=== PATIENT | female | born 1990 | race Hispanic/Latino ===

== ENCOUNTER → 2023-08-09 17:51 | Outpatient (REF) | payer OTHER, SELFPAY ==
[2023-08-18 04:08] LABS: HPV Genotype 16 Not Detected; HPV Genotype 18 Not Detected; HPV, High Risk Not Detected; HPV, High Risk Source Cervical
== END ==
LOC: CPAP 17:51
PROVIDERS: ATTENDING PHYSICIAN Nurse Practitioner Acute Care
DX: Z12.4 Encounter for screening for malignant neoplasm of cervix (principal)
CPT/HCPCS: 87624; G0123

== ENCOUNTER → 2023-09-18 08:12 | Outpatient (REF) | payer OTHER, SELFPAY ==
[2023-09-18 09:57] LABS: ALT (SGPT) 40 U/L (0-35); AST (SGOT) 30 U/L (14-36); Albumin 4.5 g/dl (3.5-5.0); Alkaline Phosphatase 99 U/L (38-126); Blood Urea Nitrogen 13 mg/dl (7-17); Calcium 8.8 mg/dl (8.4-10.2); Carbon Dioxide 21 mmol/L (22-30); Chloride 108 mmol/L (98-107); Glucose 98 mg/dl (70-99); HDL Cholesterol 28 mg/dl; LDL Cholesterol, Calculated 116 mg/dl; Potassium 4.5 mmol/L (3.5-5.1); Sodium 137 mmol/L (135-145); Total Cholesterol 170 mg/dl (50-199); Total Protein 7.4 g/dl (6.3-8.2); Triglyceride 131 mg/dl (10-149); Very Low Density Lipoprotein 26 mg/dl (0-30); eGFR > 60.00
[2023-09-18 10:05] LABS: Glycohemoglobin (HgbA1c) 5.7 % (4.0-5.6); Vitamin D, 25-OH*** 14.9 ng/mL (30-80)
[2023-09-18 10:18] LABS: TSH Reflex To Free T4 4.83 uIU/ml (0.47-4.68)
[2023-09-18 10:47] LABS: Free T4 0.87 ng/dl (0.78-2.19)
[2023-09-18 19:42] LABS: Hepatitis C Antibody Negative (Negative)
[2023-09-21 00:42] LABS: HBV Quant by NAAT IU/mL Not Detected; HBV Quant by NAAT Interp Not Detected (Not Detected); HBV Quant by NAAT Log IU/mL Not Detected log IU/mL
== END ==
LOC: CLINIC 08:12
PROVIDERS: ATTENDING PHYSICIAN Nurse Practitioner Acute Care
DX: E78.2 Mixed hyperlipidemia (principal); R73.03 Prediabetes; E55.9 Vitamin D deficiency, unspecified; R79.89 Other specified abnormal findings of blood chemistry
CPT/HCPCS: 80053; 80061; 82306; 83036; 84439; 84443; 86803; 87517

== ENCOUNTER → 2023-12-13 07:11 | Outpatient (REF) | payer OTHER, SELFPAY ==
[2023-12-13 08:53] LABS: Glycohemoglobin (HgbA1c) 5.6 % (4.0-5.6)
[2023-12-13 10:26] LABS: ALT (SGPT) 26 U/L (0-35); AST (SGOT) 24 U/L (14-36); Albumin 4.5 g/dl (3.5-5.0); Alkaline Phosphatase 99 U/L (38-126); Blood Urea Nitrogen 14 mg/dl (7-17); Calcium 9.5 mg/dl (8.4-10.2); Carbon Dioxide 23 mmol/L (22-30); Chloride 105 mmol/L (98-107); Glucose 91 mg/dl (70-99); Potassium 4.4 mmol/L (3.5-5.1); Sodium 139 mmol/L (135-145); Total Bilirubin 1.5 mg/dl (0.2-1.3); Total Protein 7.2 g/dl (6.3-8.2); eGFR > 60.00
[2023-12-13 10:29] LABS: Free T4 0.87 ng/dl (0.78-2.19); Vitamin D, 25-OH*** 22.4 ng/mL (30-80)
[2023-12-13 10:42] LABS: TSH 6.52 uIU/ml (0.47-4.68)
== END ==
LOC: REG 07:11
PROVIDERS: ATTENDING PHYSICIAN Nurse Practitioner Adult Health
DX: R73.03 Prediabetes (principal); R79.89 Other specified abnormal findings of blood chemistry; E55.9 Vitamin D deficiency, unspecified
CPT/HCPCS: 80053; 82306; 83036; 84439; 84443

== ENCOUNTER 2024-01-08 14:20 | Emergency (ER) | payer SELFPAY ==
[2024-01-08] VITALS (9 sets, daily range): BP systolic 97–122; BP diastolic 64–94; PULSE 76–78; BMI 32.3
[2024-01-08 14:52] LABS: % Basophils 0.2 % (0-2); % Immature Granulocytes 0.4 % (0-0.5); % Lymphocytes 14.5 % (20.5-51.1); % Monocytes 6.1 % (1.7-9.3); % Neutrophils 78.8 % (42.2-75.2); Absolute Lymphocytes 1.6 10^3/uL (1.2-3.4); Absolute Monocytes 0.7 10^3/uL (0.1-0.6); Absolute Neutrophils 8.5 10^3/uL (1.4-6.5); Hematocrit 39.7 % (37.0-47.0); Hemoglobin 13.7 g/dL (12.0-16.0); Mean Corp Hgb Conc. 34.5 g/dL (33.0-37.0); Mean Corpuscular Hgb 30.3 pg (27.0-31.0); Mean Corpuscular Volume 87.8 fL (81.0-99.0); Mean Platelet Volume 10.6 fL (7.4-10.4); Nucleated Red Blood Cells % 0 %; Platelet Count 250 10^3/uL (130-400); Red Blood Cell Count 4.52 10^6/uL (4.20-5.40); Red Cell Dist. Width 13.1 % (11.5-14.5); White Blood Cell Count 10.8 10^3/uL (4.8-10.8)
[2024-01-08 15:07] LABS: COVID-19 Antigen Negative (Negative)
[2024-01-08 15:10] LABS: ALT (SGPT) 44 U/L (0-35); AST (SGOT) 29 U/L (14-36); Albumin 4.6 g/dl (3.5-5.0); Alkaline Phosphatase 92 U/L (38-126); Blood Urea Nitrogen 8 mg/dl (7-17); Calcium 9.3 mg/dl (8.4-10.2); Carbon Dioxide 22 mmol/L (22-30); Chloride 101 mmol/L (98-107); Glucose 98 mg/dl (70-99); Potassium 3.6 mmol/L (3.5-5.1); Sodium 135 mmol/L (135-145); Total Bilirubin 2.4 mg/dl (0.2-1.3); Total Protein 7.5 g/dl (6.3-8.2); eGFR > 60.00
[2024-01-08] MEDS: NSS 1000 IV ×2 (19:14→22:04)
[2024-01-08] MEDS: DILAUDID 0.5 MG IV (19:14)
[2024-01-08] MEDS: PROTONIX IV 40 MG IV (19:16)
[2024-01-08] MEDS: TORADOL 15 MG IV (19:19)
[2024-01-08 19:25] LABS: HCG, Serum Qualitative Screen Negative
[2024-01-08 19:29] LABS: Lipase 46 U/L (23-300)
--- NOTE | 2024-01-08 20:29 | ED.GENMED ---
History of Present Illness
General
Chief Complaint: Fever
Source: patient
Exam Limitations: none
Time Seen by Provider: 01/08/24 17:39
Nursing documentation reviewed up to this point in time: agreed with
History of Present Illness
History of Present Illness:
Patient presents to ED secondary to 3-day history of upper abdominal pain associated with nausea, vomiting, and diarrhea. In addition, patient report diffuse headache along with neck pain over the past 2 days. Abdominal pain described as sharp,
nonradiating, worse with meals, without any alleviating factors. Denies trauma. Denies recent travel or surgery. Denies back pain. Denies difficulty with urination. Denies sick contact. Patient otherwise is healthy, and does not take any
medications. Denies any abdominal surgery.
Review of Systems
Review of Systems
Allergies reviewed?: Yes
All Other Systems: ROS reviewed and negative except as documented in HPI and ROS
Constitutional: Reports no symptoms; Denies fever or chills
EENT: Reports no symptoms
Respiratory: Reports no symptoms; Denies cough
Cardiac: Reports no symptoms
ABD/GI: Reports abdominal pain, nausea, vomiting and diarrhea
: Reports no symptoms
Musculoskeletal: Reports neck pain
Skin: Reports no symptoms
Neurological: Reports headache
Phy Exam
Physical Exam
Physical Exam:
Physical Exam
General: mild distress, not acutely ill. afebrile
Head: nc/at. eomi
Neck: supple. no meningeal signs. normal posterior pharynx
Heart: s1/s2 regular rate and rhythm, no murmur. equal radial pulses.
Lungs: no acute respiratory distress. clear bilaterally
Abdomen: normal bowel sounds. mild epigastric/RUQ tenderness to palpation, without distention
Neuro: alert and oriented. no focal neurological deficits
Skin: no rash
Psychiatric: well kept. interactive and cooperative
Extremities: no edema. no calf tenderness
Course
Orders/Labs/Results
Orders:
Orders
01/08/24 14:36
COVID-19 Antigen Urgent
Source: Nasal Swab
Complete Blood Count/With Diff Urgent
Comprehensive Metabolic Panel Urgent
HCG, Serum Qualitative Screen Urgent
Comment: ADD ON
Lipase Urgent
Comment: ADD ON
Monotest Urgent
Comment: ADD ON
Influenza A+B Rapid Molecular Urgent
POLO Source: Nasal Swab
Specimen Description:
01/08/24 18:51
0.9% Sodium Chloride 1000 ml [Nss] 1,000 ml IV BOLUS
HYDROmorphone [Dilaudid] 0.5 mg IV NOW STA
Ketorolac [Toradol] 15 mg IV NOW STA
Pantoprazole [Protonix IV] 40 mg IV NOW STA
US Abdomen Complete/Upper Urgent
Comment:
Reason For Exam: RUQ pain
01/08/24 18:52
Add On- LAB Urgent
Tests Added?: lipase, seum b-hcg, qualitative
01/08/24 21:51
Add On- LAB Urgent
Tests Added?: monotest
01/08/24 21:59
0.9% Sodium Chloride 1000 ml [Nss] 1,000 ml IV BOLUS
Abnormal Lab Results
01/08/24
14:36
MPV 10.6 H fL
(7.4-10.4)
Absolute Neuts (auto) 8.5 H 10^3/uL
(1.4-6.5)
Absolute Monos (auto) 0.7 H 10^3/uL
(0.1-0.6)
Neutrophils % 78.8 H %
(42.2-75.2)
Lymphocytes % 14.5 L %
(20.5-51.1)
Total Bilirubin 2.4 H mg/dl
(0.2-1.3)
ALT 44 H U/L
(0-35)
07/08/24 14:36
01/08/24 14:36
Vital Signs
Initial and Last Documented VS:
Initial Vital Signs
Temp Pulse Resp BP Pulse Ox
99.3 F 96 18 117/89 97
01/08/24 14:23 01/08/24 14:23 01/08/24 14:23 01/08/24 14:23 01/08/24 14:23
Last Documented Vital Signs
Temp Pulse Resp BP Pulse Ox
99.3 F 96 18 114/79 98
01/08/24 14:23 01/08/24 14:23 01/08/24 14:23 01/08/24 22:38 01/08/24 22:38
MDM/Problems Addressed
MDM/Problems Addressed:
Patient with an unremarkable workup in ED, including blood work and abdominal US. In addition, patient reports complete resolution of symptoms after treatment. Patient no longer has headache and abdominal pain. Patient is able to range her neck
without any discomfort. Repeat abdominal exam: Soft and nontender. History and exam consistent with likely viral illness. Otherwise, patient is afebrile, hemodynamic stable, and nontoxic-appearing, at time of discharge. Advised Tylenol/Motrin
along with hydration at home advised to return to ED with worsening symptoms, i.e. fever/worsening pain/vomiting. Everything explained to the patient via container finisher.
*Critical Care Note
Total Time (30-74mins, 75-104mins- exclusive of procedures): Not Applicable
ED Attending Note
-
Portions of this chart may have been created with voice recognition software.� Occasional wrong word or��sound alike� substitutions may have occurred due to the inherent limitations of voice recognition software.
Discharge Plan
Departure
Patient Disposition: Home (Routine Discharge)
Date of Disposition: 01/08/24
Time of Disposition: 22:49
Patient with high blood pressure during this ER visit?: Yes
Discharge Problem:
Viral illness
Instructions: Viral Syndrome (DC)
Referrals:
[facility], PA-C [Family Provider] -
Activity Restrictions/Additional Instructions:
As discussed, please follow-up with your primary care physician for reevaluation. Please return to ED with worsening symptoms, i.e. fever/worsening pain/vomiting.
Interventions
Interventions:
*Risk Screen - Suicide Last Done: 01/08/24 17:43
*General Assessment Last Done: 01/08/24 17:43
*Neglect/Abuse Screening Last Done: 01/08/24 17:43
ED- Fall Risk Assessment Last Done: 01/08/24 22:48
*ED COVID-19 Vaccine History Last Done: 01/08/24 17:43
*Nursing Disposition Last Done: 01/08/24 22:48
ED- Neurological Assessment Last Done: 01/08/24 17:43
ED-Skin Assessment Last Done: 01/08/24 17:43
Discharge Date and Time
Discharge Date/Time: 01/08/24 22:50
Print Language: AZERI
[2024-01-08 22:37] LABS: Monotest Negative (Negative)
== END 2024-01-08 22:50 | disposition home or self-care (01) ==
LOC: EMR 14:20
PROVIDERS: Emergency Medicine; EMERGENCY PHYSICIAN Emergency Medicine; FAMILY PHYSICIAN Physician Assistant Medical
DX: B34.9 Viral infection, unspecified (principal); R03.0 Elevated blood-pressure reading, without diagnosis of hypertension; Z11.52 Encounter for screening for COVID-19
CPT/HCPCS: 99284; 96374; 96375 ×2; 96361 ×2; 76700; 80053; 83690; 84703; 85025; 86308; 87502; 87811

== ENCOUNTER → 2024-04-04 08:46 | Outpatient (REF) | payer OTHER, SELFPAY ==
[2024-04-04 10:36] LABS: Free T4 1.26 ng/dl (0.78-2.19)
[2024-04-04 10:50] LABS: TSH 1.81 uIU/ml (0.47-4.68)
[2024-04-05 20:57] LABS: Thyroid Peroxidase Ab (TPO) 63.3 IU/mL (0.0-9.0)
== END ==
LOC: REG 08:46
PROVIDERS: ATTENDING PHYSICIAN Nurse Practitioner Adult Health
DX: R79.89 Other specified abnormal findings of blood chemistry (principal)
CPT/HCPCS: 36415; 84439; 84443; 86376

== ENCOUNTER → 2024-10-04 08:04 | Outpatient (REF) | payer OTHER, SELFPAY ==
[2024-10-04 09:58] LABS: ALT (SGPT) 33 U/L (0-35); AST (SGOT) 21 U/L (14-36); Albumin 4.5 g/dl (3.5-5.0); Alkaline Phosphatase 76 U/L (38-126); Blood Urea Nitrogen 11 mg/dl (7-17); Calcium 9.5 mg/dl (8.4-10.2); Carbon Dioxide 24 mmol/L (22-30); Chloride 107 mmol/L (98-107); Glucose 90 mg/dl (70-99); HDL Cholesterol 32 mg/dl; LDL Cholesterol, Calculated 129 mg/dl; Potassium 4.7 mmol/L (3.5-5.1); Sodium 141 mmol/L (135-145); Total Bilirubin 1.7 mg/dl (0.2-1.3); Total Cholesterol 186 mg/dl (50-199); Total Protein 6.9 g/dl (6.3-8.2); Triglyceride 126 mg/dl (10-149); Very Low Density Lipoprotein 25 mg/dl (0-30); eGFR > 60.00
[2024-10-04 10:09] LABS: Free T4 0.83 ng/dl (0.78-2.19)
[2024-10-04 10:53] LABS: Glycohemoglobin (HgbA1c) 5.2 % (4.0-5.6)
== END ==
LOC: CLINIC 08:04
PROVIDERS: ATTENDING PHYSICIAN Nurse Practitioner Adult Health
DX: E06.9 Thyroiditis, unspecified (principal); R73.03 Prediabetes; E78.2 Mixed hyperlipidemia
CPT/HCPCS: 36415; 80053; 80061; 82306; 83036; 84439; 84443

== ENCOUNTER → 2025-01-10 07:16 | Outpatient (REF) | payer OTHER, SELFPAY ==
[2025-01-10 09:08] LABS: Vitamin D, 25-OH*** 23.4 ng/mL (30-80)
== END ==
LOC: REG 07:16
PROVIDERS: ATTENDING PHYSICIAN Nurse Practitioner Adult Health
DX: E55.9 Vitamin D deficiency, unspecified (principal)
CPT/HCPCS: 36415; 82306

== ENCOUNTER → 2025-04-11 07:44 | Outpatient (REF) | payer OTHER, SELFPAY ==
[2025-04-11 08:51] LABS: Blood Urea Nitrogen 11 mg/dl (7-17); Calcium 9.1 mg/dl (8.4-10.2); Carbon Dioxide 27 mmol/L (22-30); Chloride 105 mmol/L (98-107); Glucose 99 mg/dl (70-99); Potassium 4.3 mmol/L (3.5-5.1); Sodium 139 mmol/L (135-145); eGFR > 60.00
[2025-04-11 09:04] LABS: Vitamin D, 25-OH*** 30.0 ng/mL (30-80)
== END ==
LOC: CLINIC 07:44
PROVIDERS: ATTENDING PHYSICIAN Nurse Practitioner Adult Health
DX: E55.9 Vitamin D deficiency, unspecified (principal)
CPT/HCPCS: 36415; 80048; 82306